=== PATIENT | male | born 1990 | race Caucasian/White ===

== ENCOUNTER 2018-10-04 07:38 | Emergency (ER) | payer MEDICAID ==
[2018-10-04] MEDS: LIDOCAINE/MYLANTA 40 ML BTL PO (08:14)
== END 2018-10-04 10:04 | disposition home or self-care (01) ==
LOC: FTE 07:38
DX: K21.9 Gastro-esophageal reflux disease without esophagitis (principal); Z87.891 Personal history of nicotine dependence
CPT/HCPCS: 99283; Z7502

== ENCOUNTER 2019-02-01 05:34 | Emergency (ER) | payer MEDICAID ==
[2019-02-01] MEDS: KETOROLAC 30 MG INJ IM (07:05)
== END 2019-02-01 08:16 | disposition home or self-care (01) ==
LOC: FTE 05:34
DX: M25.562 Pain in left knee (principal); Z87.891 Personal history of nicotine dependence
CPT/HCPCS: 73562; 96372; 99284-25